=== PATIENT | male | born 1960 | race Caucasian/White ===

== ENCOUNTER 2024-05-08 21:13 | Emergency (ER) | payer OTHER ==
[~2024-05-08] VITALS: Ht 165.1 cm; Wt 72.6 kg
[2024-05-08 21:13] VITALS: BP 113/51; PULSE 60; RESP 18; TEMP 98.4; O2SAT 98
[2024-05-08 21:30] VITALS: TEMP 98.4
[2024-05-08 21:43] VITALS: O2SAT 98
[2024-05-08 22:36] LABS: BASOPHILS % (AUTO) 0.4 % (0.0-2.0); EOSINOPHILS % (AUTO) 0.7 % (0.0-4.0); HEMATOCRIT 34.2 % (36-52); HEMOGLOBIN 11.4 g/dL (12.0-18.0); LYMPHOCYTES % (AUTO) 17.1 % (20.5-51.1); MEAN CORPUSCULAR HEMOGLOBIN 27 pg (27-31); MEAN CORPUSCULAR HGB CONC 33 g/dL (33-37); MEAN CORPUSCULAR VOLUME 81.5 fL (80-94); MONOCYTES # (AUTO) 0.7 K/uL (0.8-1.0); MONOCYTES % (AUTO) 11.1 % (1.7-9.3); NEUTROPHILS # (AUTO) 4.3 K/uL (1.8-7.7); NEUTROPHILS % (AUTO) 70.7 % (42.2-75.2); PLATELET COUNT (AUTO) 146 K/uL (140-450); RED CELL DISTRIBUTION WIDTH 16.8 % (11.6-13.7); WHITE BLOOD COUNT (AUTO) 6.1 K/uL (4.8-10.8)
[2024-05-08] MEDS: MORPHINE SULFATE 4 MG/ML SYR IVP ONE (22:46)
[2024-05-08 22:47] LABS: ANION GAP 13.5 (8-16); CALCIUM 8.4 mg/dL (8.5-10.1); CARBON DIOXIDE 23.4 mmol/L (21-32); CREATININE 1.3 mg/dL (0.6-1.3); POTASSIUM 3.9 mmol/L (3.5-5.1)
[2024-05-08 23:36] VITALS: BP 114/62; PULSE 75; RESP 16
== END 2024-05-09 00:55 | disposition home or self-care (01) ==
LOC: MED 21:13
DX: R60.0 Localized edema (principal); M79.604 Pain in right leg; I51.7 Cardiomegaly; Z95.0 Presence of cardiac pacemaker; I25.2 Old myocardial infarction; I10 Essential (primary) hypertension; Z86.73 Personal history of transient ischemic attack (TIA), and cerebral infarction without residual deficits; Z98.890 Other specified postprocedural states
CPT/HCPCS: 36415; 80048; 85025; 93005; 93971; 96374; 99285; J2270; Q0092